=== PATIENT | male | born 1995 | race Caucasian/White ===

== ENCOUNTER 2016-07-19 12:16 | Emergency (ER) | payer BC, OTHER ==
[2016-07-19] MEDS ORDERED: TETANUS/DIPHTHERIA/PERTUSSIS 0.5 ML SYRINGE IM ONE ×2 (12:44→12:52)
== END 2016-07-19 13:13 | disposition home or self-care (01) ==
DX: S68.521A Partial traumatic transphalangeal amputation of right thumb, initial encounter (principal); W27.4XXA Contact with kitchen utensil, initial encounter; Y93.89 Activity, other specified; Y92.89 Other specified places as the place of occurrence of the external cause; Y99.0 Civilian activity done for income or pay; Z23 Encounter for immunization

== ENCOUNTER 2017-01-20 23:01 | Emergency (ER) | payer OTHER ==
[2017-01-20 23:10] VITALS: BP 128/78
[2017-01-20] MEDS ORDERED: LIDOCAINE 1% 2 ML VIAL ONE (23:15)
[2017-01-20] MEDS ORDERED: BACITRACIN OINT TOP ONE (23:36)
--- NOTE | 2017-01-20 23:41 | ED Physician Documentation ---
PD HPI UPPER EXT INJURY - Stated complaint Stated Complaint: LT FING LAC - Chief complaint Chief Complaint: Laceration - History obtained from History obtained from: Patient, Friend - History of Present Illness Location: Right, Finger Type of injury: Laceration Where injury occurred: Home Timing - onset: How many minutes ago (30) Timing - details: Abrupt onset Improved by: Immobilization Worsened by: Moving, Palpating Contributing factors: No: Anticoagulated, Prior ortho surgery Similar symptoms before: Has not had sx before Recently seen: Not recently seen - Additonal information Additional information: Patient is a 21 year old male with no significant past medical history who is presenting to the emergency department for a hand laceration. patient states that he was cooking and he cut his hand with serrated knife. Patient states that he is up to date with his tetanus. Patient denies any other injuries Review of Systems Eyes: denies: Loss of vision Ears: denies: Ear pain, Drainage/discharge Nose: denies: Rhinorrhea / runny nose, Congestion Throat: denies: Sore throat Respiratory: denies: Cough GI: denies: Nausea, Vomiting Skin: reports: Laceration (s) Musculoskeletal: reports: Extremity pain Neurologic: denies: Focal weakness, Numbness Immunocompromised: denies: Immunocompromised PD PAST MEDICAL HISTORY - Past Surgical History Past Surgical History: No - Allergies Allergies/Adverse Reactions: Allergies Allergy/AdvReac Type Severity Reaction Status Date / Time No Known Drug Allergies Allergy Verified 01/20/17 23:10 - Social History Does the pt smoke?: No Smoking Status: Never smoker Does the pt drink ETOH?: No Does the pt have substance abuse?: No - Immunizations Immunizations are current?: No Immunizations: TDAP >10years/unknown - POLST Patient has POLST: No PD ED PE NORMAL - Vitals Vital signs reviewed: Yes - General General: Alert and oriented X 3 - HEENT HEENT: Atraumatic - Neck Neck: Supple, no meningeal sign - Respiratory Respiratory: No respiratory distress - Derm Derm: Normal color, Warm and dry - Neuro Neuro: Alert and oriented X 3, No motor deficit, No sensory deficit, Normal speech - Psych Psych: Normal mood PD ED PE EXPANDED - Extremities Extremities: Left finger(s) (2cm laceration on dorsal surface of 2nd proximal digit) Results - Vitals Vitals: Vital Signs - 24 hr 01/20/17 23:07 Temperature 36.7 C Heart Rate 92 Respiratory 18 Rate Blood Pressure 128/78 O2 Saturation 100 Oxygen O2 Source Room air Procedures - Laceration (location) left second digit Length in cm: 2 Wound type: Linear Neurovascular status: Sensory intact, Motor intact Anesthesia: Lidocaine 1% Wound Preparation: Chlorhexadine, Irrigated copiously NS Skin layer closure: Size #-0 - enter number (5), Sutures - enter # (5), Other ( vicrly) Other: Patient tolerated well, No complications, Neurovascular intact, Tetanus UTD Complexity: Simple PD MEDICAL DECISION MAKING - ED course Complexity details: reviewed old records, re-evaluated patient, considered differential, d/w patient ED course: Patient was seen and examined at bedside. the laceration was repaired as described above. Patient tolerated the treatment well and was stable for discharge with outpatient follow up. Departure - Departure Disposition: 01 Home, Self Care Clinical Impression: Laceration Condition: Good Instructions: ED Laceration Hand Follow-Up: primary,care provider [Other] - As Needed Comments: Please keep the wound clean and dry. You should leave the dressing on for the first 24 hours. After that you should gently clean it but don't scrub it as it can lead to the sutures breaking down. the sutures will dissolve on their own. You can take motrin or tyelnol as needed for pain. You should follow up with your pmd or return to the emergency department for any signs of infection.
== END 2017-01-20 23:59 | disposition home or self-care (01) ==
LOC: ED 23:01
DX: S61.211A Laceration without foreign body of left index finger without damage to nail, initial encounter (principal); W26.0XXA Contact with knife, initial encounter; Y93.G3 Activity, cooking and baking; Y92.009 Unspecified place in unspecified non-institutional (private) residence as the place of occurrence of the external cause
CPT/HCPCS: 12001; 99282; 99283; A9270